=== PATIENT | female | born 1940 | race Caucasian/White ===

== ENCOUNTER → 2017-07-31 | Outpatient (CLI) | payer MEDICARE ==
[~2017-07-31] MED LIST: REGADENOSON 0.4 MG/5 ML SYRINGE ONE
== END | disposition home or self-care (01) ==
LOC: CVU 09:38
PROVIDERS: ATTEND Internal Medicine Cardiovascular Disease
DX: I08.0 Rheumatic disorders of both mitral and aortic valves (principal)
CPT/HCPCS: 78452; 93017; 93306; A9502; J2785

== ENCOUNTER → 2018-05-06 | Outpatient (CLI) | payer MEDICARE | END | disposition home or self-care (01) | LOC: CFH 08:31 | PROVIDERS: ATTEND Internal Medicine | DX: Z13.820 Encounter for screening for osteoporosis (principal); M85.88 Other specified disorders of bone density and structure, other site | CPT/HCPCS: 77080 ==

== ENCOUNTER → 2018-08-13 | Outpatient (CLI) | payer MEDICARE | END | disposition home or self-care (01) | LOC: CFH 10:02 | PROVIDERS: ATTEND Nurse Practitioner | DX: Z12.31 Encounter for screening mammogram for malignant neoplasm of breast (principal) | CPT/HCPCS: 77067 ==

== ENCOUNTER 2018-08-26 12:22 | Outpatient (CLI) | payer MEDICARE | END 2018-08-26 23:59 | disposition home or self-care (01) | LOC: CFH 12:22 | PROVIDERS: ATTEND Internal Medicine Cardiovascular Disease | DX: I08.3 Combined rheumatic disorders of mitral, aortic and tricuspid valves (principal); I77.810 Thoracic aortic ectasia; I10 Essential (primary) hypertension; E11.9 Type 2 diabetes mellitus without complications; E78.5 Hyperlipidemia, unspecified | CPT/HCPCS: 93306 ==

== ENCOUNTER 2019-01-29 10:51 | Observation (INO) | payer MEDICARE, MEDICAID ==
[~2019-01-29] VITALS: Ht 167.6 cm; Wt 97.6 kg
--- NOTE | 2019-01-29 11:05 | NUR ---
TO ED ROOM 38 PER WC. A&OX4, RESP EVEN & UNLABORED, SPEECH CLEAR. STATES SHE FELL IN [employer] [place] YESTERDAY, HIT FOREHEAD ON PAVEMENT. ABRASION TO LEFT FOREHEAD AT HAIR LINE. ECCHYMOSIS & SWELLING TO LEFT EYE AREA - UNABLE TO OPEN EYELID DUE TO SWELLING. ECCHYMOSIS AROUND RT EYE, ABRASION LT CHEEK & LEFT SHOULDER. DENIES TAKING BLOOD THINNERS. REPORTS ACHINESS TO INJURED AREAS. NO PAIN MEDS TAKEN TODAY. "CHEATER" GLASSES ON HEAD. DROVE HERSELF TO ED.
--- NOTE | 2019-01-29 11:15 | NUR ---
FOREHEAD WOUND CLEANSED W/ WOUND CLEANSER & WATER.
[2019-01-29] MEDS ORDERED: VITA100022 PO (11:36)
[2019-01-29] MEDS ORDERED: [UNRECOGNIZED DRUG - OTHER] PO (11:36)
[2019-01-29] MEDS ORDERED: CALCIUM 500 PO (11:36)
[2019-01-29] MEDS ORDERED: SIMV40TA3 PO (11:36)
[2019-01-29] MEDS ORDERED: LACT10SO28 PO (11:36)
[2019-01-29] MEDS ORDERED: FURO20TA3 PO (11:36)
[2019-01-29] MEDS ORDERED: LISI5TAB7 PO (11:36)
[2019-01-29] MEDS ORDERED: SPIR25TA5 PO (11:36)
[2019-01-29] MEDS ORDERED: LEVO25TA4 PO (11:36)
--- NOTE | 2019-01-29 11:36 | NUR ---
LABS DRAWN. PT TO XR PER LORETTA
[2019-01-29 11:53] LABS: ALBUMIN 2.9 g/dL (3.4-5.0); ANION GAP 8 mmol/L (5-15); CALCIUM 8.7 mg/dL (8.5-10.1); CHLORIDE 96 mmol/L (98-107); CREATININE 0.88 mg/dL (0.55-1.02)
--- NOTE | 2019-01-29 11:56 | NUR ---
RETURNED FROM RADIOLOGY. USING OWN CELL PHONE. RESTING COMFORTABLY.
--- NOTE | 2019-01-29 11:58 | NUR ---
BP 77/41. DENIES LIGHTHEADEDNESS, DIZZINESS. STATES SHE TOOK HER HTN MED THIS AM. SIDE RAILS UP X2, CALL LIGHT W/IN REACH. ERP WILL BE NOTIFIED OF BP.
[2019-01-29 12:23] LABS: MEAN CORPUSCULAR HEMOGLOBIN 35.1 pg (27.0-34.8); MEAN CORPUSCULAR VOLUME 103.2 fL (80-100); MEAN PLATELET VOLUME 7.1 fL (7.4-10.4); PLATELET COUNT 90 x10^3/uL (130-400); RED BLOOD COUNT 3.77 x10^6/uL (3.82-5.3)
[2019-01-29 12:26] LABS: BASOPHILS # (AUTO) 0.01 x10^3/uL (0-0.1); BASOPHILS % (AUTO) 0 % (0-1); EOSINOPHILS # (AUTO) 0.17 x10^3/uL (0-0.4); EOSINOPHILS % (AUTO) 4 % (1-7); INTERNATIONAL NORMALIZED RATIO 1.13 (0.93-1.1); LYMPHOCYTES # (AUTO) 0.71 x10^3/uL (1-3.4); LYMPHOCYTES % (AUTO) 16 % (22-44); MD SCAN; MONOCYTES # (AUTO) 0.39 x10^3/uL (0.2-0.8); MONOCYTES % (AUTO) 9 % (2-9); NEUTROPHILS # (AUTO) 3.17 x10^3/uL (1.8-6.8); NEUTROPHILS % (AUTO) 71 % (42-75); PROTHROMBIN TIME 11.8 Seconds (9.6-11.5)
--- NOTE | 2019-01-29 13:15 | NUR ---
DR TAVAREZ BS
--- NOTE | 2019-01-29 13:53 | NUR ---
DR GALLAGHER, HOSPITALIST, BS FOR EXAM
--- NOTE | 2019-01-29 13:58 | NUR ---
PT REPORT TO GHAZALA AUSTIN FOR ROOM 419
[2019-01-29 14:28] VITALS: BP 99/51
[2019-01-29] MEDS ORDERED: morphine SULFATE 10 MG/ML, 1ML IVPush PRN (14:30)
[2019-01-29] MEDS ORDERED: GABAPENTIN 300 MG CAPSULE PO PRN (14:30)
[2019-01-29] MEDS ORDERED: ACETAMINOPHEN 325 MG TABLET PO PRN (14:30)
[2019-01-29] MEDS ORDERED: ONDANSETRON 2MG/ML, 2ML IVPush PRN (14:30)
[2019-01-29] MEDS ORDERED: OXYcodone IR 5MG TABLET PO PRN (14:30)
[2019-01-29] MEDS ORDERED: hydrALAzine 20 MG/ML, 1ML IVPush PRN (14:30)
[2019-01-29 14:37] LABS: ALANINE AMINOTRANSFERASE 37 U/L (12-78); BILIRUBIN, DIRECT 0.4 mg/dL (0.1-0.2)
[2019-01-29 14:42] LABS: ALKALINE PHOSPHATASE 113 U/L (45-117); BILIRUBIN,TOTAL 1.4 mg/dL (0.2-1.0); TOTAL PROTEIN 5.9 g/dL (6.4-8.2)
[2019-01-29] MEDS ORDERED: GADOBUTROL 10 MMOL/10 ML PFS ONE (16:12)
[2019-01-29] MEDS: NS + 20MEQ KCL 1,000 ML IV SCH (17:13)
[2019-01-29 19:36] VITALS: BP 90/59
[2019-01-29] MEDS: LACTULOSE 10 GM/15 ML UDC PO SCH (20:14)
[2019-01-29] MEDS ORDERED: SIMVASTATIN 20 MG TABLET PO SCH (21:00)
[2019-01-30 00:26] VITALS: BP 98/60
[2019-01-30] MEDS: NS + 20MEQ KCL 1,000 ML IV SCH ×2 (02:55→16:13)
[2019-01-30 05:26] LABS: MEAN CORPUSCULAR HEMOGLOBIN 34.3 pg (27.0-34.8); MEAN CORPUSCULAR HGB CONC 33.4 g/dL (32.4-35.8); MEAN CORPUSCULAR VOLUME 102.6 fL (80-100); MEAN PLATELET VOLUME 7.2 fL (7.4-10.4); PLATELET COUNT 75 x10^3/uL (130-400); RED BLOOD COUNT 3.69 x10^6/uL (3.82-5.3); RED CELL DISTRIBUTION WIDTH 13.5 % (9.6-15.2)
[2019-01-30 05:28] LABS: ANION GAP 8 mmol/L (5-15); CALCIUM 8.1 mg/dL (8.5-10.1); CHLORIDE 98 mmol/L (98-107); CREATININE 0.99 mg/dL (0.55-1.02)
[2019-01-30 05:50] LABS: BASOPHILS # (AUTO) 0.03 x10^3/uL (0-0.1); BASOPHILS % (AUTO) 1 % (0-1); EOSINOPHILS # (AUTO) 0.15 x10^3/uL (0-0.4); EOSINOPHILS % (AUTO) 4 % (1-7); LYMPHOCYTES # (AUTO) 0.94 x10^3/uL (1-3.4); LYMPHOCYTES % (AUTO) 24 % (22-44); MD SCAN; MONOCYTES # (AUTO) 0.39 x10^3/uL (0.2-0.8); MONOCYTES % (AUTO) 10 % (2-9); NEUTROPHILS # (AUTO) 2.47 x10^3/uL (1.8-6.8); NEUTROPHILS % (AUTO) 62 % (42-75)
[2019-01-30 07:34] VITALS: BP 98/57
[2019-01-30] MEDS: CALCIUM CARBONATE 500 MG TAB.CHEW PO SCH (08:10)
[2019-01-30] MEDS: [UNRECOGNIZED DRUG - OTHER] PO SCH (08:10)
[2019-01-30] MEDS: VITAMIN E ACETATE PO SCH (08:10)
[2019-01-30] MEDS: LACTULOSE 10 GM/15 ML UDC PO SCH ×2 (08:10→20:14)
[2019-01-30] MEDS ORDERED: LEVOTHYROXINE 150 MCG TABLET PO SCH (09:00)
[2019-01-30 12:53] VITALS: BP 86/42
[2019-01-30 14:36] VITALS: BP 92/51
[2019-01-30 19:36] VITALS: BP 96/55
[2019-01-31 01:06] VITALS: BP 92/56
[2019-01-31 04:53] LABS: MEAN CORPUSCULAR HEMOGLOBIN 33.8 pg (27.0-34.8); MEAN CORPUSCULAR HGB CONC 32.8 g/dL (32.4-35.8); MEAN CORPUSCULAR VOLUME 103.2 fL (80-100); MEAN PLATELET VOLUME 6.9 fL (7.4-10.4); PLATELET COUNT 67 x10^3/uL (130-400); RED BLOOD COUNT 3.69 x10^6/uL (3.82-5.3); RED CELL DISTRIBUTION WIDTH 13.4 % (9.6-15.2)
[2019-01-31 05:01] LABS: ALBUMIN 2.6 g/dL (3.4-5.0); ANION GAP 7 mmol/L (5-15); CALCIUM 8.4 mg/dL (8.5-10.1); CHLORIDE 106 mmol/L (98-107)
[2019-01-31 05:06] LABS: ALANINE AMINOTRANSFERASE 30 U/L (12-78); ALKALINE PHOSPHATASE 90 U/L (45-117); BILIRUBIN,TOTAL 1.1 mg/dL (0.2-1.0); TOTAL PROTEIN 5.3 g/dL (6.4-8.2)
[2019-01-31] MEDS: NS + 20MEQ KCL 1,000 ML IV SCH (05:41)
[2019-01-31 05:45] LABS: BASOPHILS # (AUTO) 0.01 x10^3/uL (0-0.1); BASOPHILS % (AUTO) 1 % (0-1); EOSINOPHILS % (AUTO) 4 % (1-7); LYMPHOCYTES # (AUTO) 0.71 x10^3/uL (1-3.4); LYMPHOCYTES % (AUTO) 31 % (22-44); MD SCAN; MONOCYTES # (AUTO) 0.31 x10^3/uL (0.2-0.8); MONOCYTES % (AUTO) 13 % (2-9); NEUTROPHILS # (AUTO) 1.18 x10^3/uL (1.8-6.8); NEUTROPHILS % (AUTO) 51 % (42-75)
[2019-01-31] MEDS ORDERED: LEVOTHYROXINE 150 MCG TABLET PO SCH (06:00)
[2019-01-31 07:20] VITALS: BP 96/55
[2019-01-31] MEDS: CALCIUM CARBONATE 500 MG TAB.CHEW PO SCH (07:50)
[2019-01-31] MEDS: [UNRECOGNIZED DRUG - OTHER] PO SCH (07:51)
[2019-01-31] MEDS: VITAMIN E ACETATE PO SCH (07:51)
[2019-01-31] MEDS: LACTULOSE 10 GM/15 ML UDC PO SCH (07:51)
== END 2019-01-31 10:35 | disposition home or self-care (01) ==
LOC: ED 12:09 → INTOOBSV 13:29 → EDIP 13:29 → 4WST 14:17 → DCLOUNGE 01-31 10:30
PROVIDERS: ADMIT Internal Medicine; ATTEND Internal Medicine
DX: S02.2XXA Fracture of nasal bones, initial encounter for closed fracture (principal); S16.1XXA Strain of muscle, fascia and tendon at neck level, initial encounter; S00.03XA Contusion of scalp, initial encounter; R26.9 Unspecified abnormalities of gait and mobility; E87.1 Hypo-osmolality and hyponatremia; D75.89 Other specified diseases of blood and blood-forming organs; I10 Essential (primary) hypertension; D69.6 Thrombocytopenia, unspecified; K75.9 Inflammatory liver disease, unspecified; E03.9 Hypothyroidism, unspecified; Z90.710 Acquired absence of both cervix and uterus; Z85.05 Personal history of malignant neoplasm of liver; Z85.038 Personal history of other malignant neoplasm of large intestine; W01.10XA Fall on same level from slipping, tripping and stumbling with subsequent striking against unspecified object, initial encounter; Y93.89 Activity, other specified; Y92.89 Other specified places as the place of occurrence of the external cause
CPT/HCPCS: 36415; 70450; 70486; 72125; 73030; 73223; 80048; 80053; 80076; 82040; 82607; 84443; 85025; 85610; 85730; 96360; 96361; 97162; 99284; A9585; G0378; J3480